=== PATIENT | male | born 1955 ===

== ENCOUNTER 2023-05-21 05:30 | Day surgery (SDC) | payer OTHER ==
[2023-05-10 08:39] LABS: PH,URINE 5.5 (5.0-8.0); URINE APPEARANCE Clear; URINE BILIRRUBIN Negative (NEGATIVE); URINE BLOOD Negative; URINE COLOR Yellow; URINE GLUCOSE Negative (NEGATIVE); URINE LEUKOCYTE Negative; URINE NITRATE Negative; URINE PROTEIN Negative (NEGATIVE); URINE UROBILINOGEN 0.2 E.U./dl
[2023-05-10 08:42] LABS: HEMATOCRIT 45.1 % (39.0-48.0); HEMOGLOBIN 15.5 g/dL (13-16.00); MEAN CELL VOLUME 96.9 fL (80.0-100.00); MEAN CORPUSCULAR HEMOGLOBIN 33.3 pg (27.00-32.0); MEAN CORPUSCULAR HGB CONC 34.4 g/dl (32.0-36.0); PLATELET COUNT 225 K/uL (150-450); RED BLOOD COUNT 4.65 M/uL (4.00-6.00); RED CELL DISTRIBUTION WIDTH 12.9 % (11.5-14.5)
[2023-05-10 08:58] LABS: INR 0.98; PARTIAL THROMBOPLASTIN TIME 28.1 SECONDS (22.0-34.0); PROTHROMBIN TIME 10.3 SECONDS (9.0-11.5)
[2023-05-10 09:42] LABS: ALBUMIN 4.1 gm/dL (3.4-5.0); CALCIUM 10.6 mg/dL (8.5-10.1); CREATININE SERUM 0.77 mg/dL (0.70-1.30); GFR 100.17; PHOSPHOROUS 3.6 mg/dL (2.5-4.9); POTASSIUM 5.36 mEq/L (3.5-5.1)
[2023-05-10 09:46] LABS: URINE BACTERIA 2.5 uL (0.0-1933); URINE RBC 1.4 uL (0.0-20.8); URINE WBC 1.5 uL (0.0-23.2)
[~2023-05-21 05:30] MED LIST: ADVIL100 M1; BRIMONIDINE TART5 ML; DORZOLAMIDE 2%10 ML OP; LUMIGAN2.5 M1; SIMVASTATIN 20MG; XELPROS2.5 ML; ZESTRIL5 MG
[2023-05-21] MEDS ORDERED: CEFAZOLIN SODIUM 1,000 MG VIAL ONE (07:18)
[2023-05-21] MEDS ORDERED: LIDOCAINE HCL 1%/Epi 20ML VIAL IJ ONE ×2 (08:34→09:30)
[2023-05-21] MEDS ORDERED: POVIDONE-IODINE 118 ML BOTT TOP ONE ×2 (08:34→09:30)
[2023-05-21] MEDS ORDERED: EPINEPHRINE HCL/PF 1 MG/ML AMPUL ONE (08:34)
[2023-05-21] MEDS ORDERED: BACITRACIN 28.35 GM OINT.TUBE TOP ONE ×2 (09:05→09:45)
[2023-05-21] MEDS ORDERED: DEXAMETHASONE SODIUM PHOSPHATE 4 MG/ML VIAL ONE ×2 (09:05→09:06)
[2023-05-21] MEDS ORDERED: CEFAZOLIN SODIUM 1,000 MG VIAL IV ONE (09:15)
[2023-05-21] MEDS ORDERED: EPINEPHRINE HCL/PF 1 MG/ML AMPUL IR ONE (09:30)
[2023-05-21] MEDS ORDERED: DEXAMETHASONE SODIUM PHOSPHATE 4 MG/ML VIAL IV ONE (09:45)
[2023-05-21] MEDS ORDERED: CIPROFLOXACIN HCL 0.175 MG/DR DROPS OTIC ONE (09:45)
[2023-05-21] MEDS ORDERED: CIPROFLOXACIN2.5 ML OTIC (11:00)
[2023-05-21] MEDS ORDERED: CEPHALEXIN500 M1 PO (11:00)
== END 2023-05-21 13:05 | disposition home or self-care (01) ==
LOC: CIR.AMB 05:30
PROVIDERS: ATTEND Otolaryngology Otology & Neurotology
DX: H90.11 Conductive hearing loss, unilateral, right ear, with unrestricted hearing on the contralateral side (principal); H72.02 Central perforation of tympanic membrane, left ear; H74.21 Discontinuity and dislocation of right ear ossicles